=== PATIENT | male | born 1995 | race Caucasian/White ===

== ENCOUNTER 2017-04-14 09:50 | Outpatient (CLI) | payer OTHER ==
--- NOTE | 2017-04-14 11:46 | Diagnostic Imaging Report ---
SANJUANITA DOBSON [facility] [address] [facility] [address] [address] Report Submission Date: Apr 14, 2017 10:53:07 AM [place] Patient Study Name: LALY DENIS Date: Apr 14, 2017 10:12:23 AM [place] Modality Type: US Gender: M Description: US EXT NON VASC LIMITED : 97 Institution: [facility] Physician: SANJUANITA DOBSON Examination: Ultrasound extremity History: Palpable lump lower leg. Comparison exams: None provided Findings: Sonographic evaluation of the right lower leg in the region of reported palpable density. No evidence for focal cystic structure. Possible area of parenchymal prominence measuring 2.2 x 2.1 x 2.5 cm. No flow identified centrally on color analysis. Impression: Possible small subcutaneous lipoma. No evidence for suspicious cyst. Electronically signed on Apr 14, 2017 10:53:07 AM [place] by: Delmer OSBORNE
== END 2017-04-14 09:52 ==
LOC: RAD 09:50
PROVIDERS: ATTEND Family Medicine
DX: R22.41 Localized swelling, mass and lump, right lower limb (principal)
CPT/HCPCS: 76882

== ENCOUNTER 2018-12-06 21:09 | Emergency (ER) | payer OTHER ==
[2018-12-06] MEDS ORDERED: FLUORESCEIN SODIUM 1 STRIP TEST OU ONE (21:25)
[2018-12-06] MEDS ORDERED: TETRACAINE 0.5% OPTH 5 ML BOTTLE OU ONE (21:25)
--- NOTE | 2018-12-06 22:04 | ED Physician Documentation ---
Eye Problem - HISTORIAN Historian: patient - HPI Stated Complaint: Saw dust in right eye Chief Complaint: Eye Problems (Saw dust in eyes) Additional Information: Patient is a 23-year-old male who presents to the ER with c/o "saw dust" in bilateral eyes. Onset: minutes Associated symptoms: burining, redness Location: both eyes Severity: moderate Apparent Injury: possibly Context: foreign body Where: work Modifying Factors: Saw dust - ROS CONST: no problems MS/SKIN/LYMPH: denies: neck pain CVS/RESP: none EYES/ENT: none GI/: denies: nausea, vomiting NEURO: denies: headache - PAST HX Past History: none Immunizations: UTD Allergies/Adverse Reactions: Allergies Allergy/AdvReac Type Severity Reaction Status Date / Time No Known Drug Allergies Allergy Verified 12/06/18 21:33 Home Medications: Ambulatory Orders Medication Instructions Recorded Polymyxin B/Trimethoprim Opth 1 drop OP QID #1 bottle 12/06/18 [Polytrim Opth] - SOCIAL HX Smoking History: non-smoker Alcohol Use: none Drug Use: none - FAMILY HX Family History: none - REVIEWED ASSESSMENTS Nursing Assessment Reviewed: Yes Vitals Reviewed: Yes Procedures - Eye Procedure Alcaine Drops Administered: Yes (2 drops to each eye) Eye FB Removal: removal w/ cotton swab, other (irrigated and removed with cotton swab) Eye Irrigated w/ Saline (ccs): 50 (per eye) Progress: script sent to pharmacy for antibiotic drops- patient tolerated procedure well ED Results Lab/Radiology - Orders Orders: ED Orders Category Date Time Status Fluorescein Sodium [Bioglo Test Strip] Med 12/06/18 21:25 Discontinued 2 strip OU NOW ONE Tetracaine 0.5% Opth [Pontocaine Pf 0.5% Opth] Med 12/06/18 21:25 Discontinued 2 drop OU NOW ONE Eye Problem Physical Exam - Physical Exam General Appearance: alert, mild distress Visual Acuity Right 20/: 40 Visual Acuity Left 20/: 30 Visual Acuity: see nursing assessment Eyelids: nml inspection Conjunctiva and Sclera: injected (R), injected (L), foreign material (R), foreign material (L) Corneas: nml inspection, foreign body (R), foreign body (L), fluorescein dye uptake (L), fluorescein dye uptake (R), examined with fluorescein (R), examined with fluorescein (L) EOM: intact Pupils: equal Anterior Chambers: nml inspection Head/ENT: nml inspection, pharynx nml Skin: nml color, warm, skin intact Neck/Back: nml inspection, non-tender Respiratory: chest non-tender, breath sounds normal CVS: heart sounds normal, equal pulses Abdomen: non-tender Neuro/Psych: oriented x3, neuro intact, mood/affect nml Discharge Clincal Impression: Foreign body in conjunctival sac, left eye, initial encounter, Foreign body in conjunctival sac, right eye, initial encounter Prescriptions: Polymyxin B/Trimethoprim Opth [Polytrim Opth] 1 drop OP QID #1 bottle Referrals: Merlene Obregon MD [Primary Care Provider] - 2 Days Additional Instructions: Polymyxin B/Trimethoprim drops- 1 drop to each eye 4 times a day for 5 days If you notice any visual changes see eye doctor right away Do not rub your eyes Wear sunglasses when outside Follow up with PCP as needed Condition: Good Disposition: 01 HOME, SELF-CARE Decision to Admit: NO Decision Time: 22:04
[2018-12-06 22:09] VITALS: BP 170/78
== END 2018-12-06 21:59 | disposition home or self-care (01) ==
LOC: ED 21:09
DX: T15.11XA Foreign body in conjunctival sac, right eye, initial encounter (principal); T15.12XA Foreign body in conjunctival sac, left eye, initial encounter
CPT/HCPCS: 99282